=== PATIENT | female | born 1955 | race Caucasian/White ===

== ENCOUNTER 2025-07-25 02:22 | Inpatient (IN) | payer MEDICARE ==
[2025-07-25] MEDS ORDERED: Calcium Chloride 1 GM/10 ML Abboject SYRINGE ONE (02:25)
[2025-07-25] MEDS ORDERED: EPINEPHrine 1 MG/10 ML Abboject SYRINGE ONE (02:25)
[2025-07-25] MEDS ORDERED: Sodium Bicarb 50 MEQ/50 ML Abboject 8.4% SYRINGE ONE (02:25)
[2025-07-25] MEDS ORDERED: Norepinephrine 8 MG/0.9% NS 250 ML ONE (02:31)
[2025-07-25] MEDS ORDERED: Vasopressin In 0.9 % NaCl 100 ML ONE (02:45)
[2025-07-25 02:56] LABS: Actual Bicarbonate (HCO3a) 21.5 mEq/L (22-28); Analyzer IN Cardio ER; Base Excess (BEa) -7.5 mEq/L (-2.0 to +3.0); Calcium, Ionized (arterial) 1.30 mmol/L (1.12-1.30); Hematocrit-ABG 22 % (36.0-47.0); Hemoglobin (Hb) 7.4 g/dL (12.0-16.0); O2 Tension (PaO2), arterial 78.8 mmHg (> 70.0); Potassium - ABG Lab 4.99 mmol/L (3.70-5.30)
[2025-07-25 03:02] LABS: CO2 Tension 67.5 mmHg (35.0-45.0); Puncture Site Left Radial artery; pH, Arterial 7.121 (7.35-7.45)
[2025-07-25 03:21] LABS: Hematocrit 22.8 % (36.0-47.0); Hemoglobin 6.4 g/dL (12.0-16.0); Mean Corpuscular Hemoglobin 32.2 pg (27.0-31.0); Mean Corpuscular Volume 114.6 fL (78.0-98.0); Platelet Count 84 10x3/uL (130-400); Red Blood Cell (RBC) Count 1.99 mill/uL (4.20-5.40); White Blood Cell (WBC) Count 5.99 10x3/uL (4.8-10.8)
[2025-07-25 03:29] LABS: INR-International Normal Ratio 2.5; Prothrombin Time 27.5 sec (12.0-14.7)
[2025-07-25 03:30] LABS: PTT 20.1 sec (22.9-36.1)
[2025-07-25 03:48] LABS: Anisocytosis SLIGHT = 6-15 cells HPF (0-5); Macrocytosis SLIGHT = 6-15 cells HPF (0-5); Nucleated RBC (Manual Ct) 2 % (0); Platelet Adequacy Comment Platelets Decreased; Polychromasia SLIGHT = 2-3 cells HPF (0-2)
[2025-07-25 03:50] LABS: ALT (SGPT) 2428 U/L (Less than 34); AST (SGOT) Greater than 4001 U/L (11-34); Albumin 1.1 g/dL (3.1-4.5); Alkaline Phosphatase 86 U/L (40-110); Anion Gap 24 mmol/L (10-20); BUN (Urea Nitrogen) 24 mg/dL (9.8-20.1); Bilirubin, Total 0.1 mg/dL (0.3-1.2); Calc. Creatinine Clearance 0 mL/min (70-130); Calcium 9.5 mg/dL (7.8-10.44); Carbon Dioxide 24 mmol/L (23-31); Chloride 98 mmol/L (98-107); Globulin 1.7 g/dL (2.4-3.5); Glucose 317 mg/dL (83-110); Potassium 5.7 mmol/L (3.5-5.1); Sodium 140 mmol/L (136-145)
[2025-07-25 04:17] LABS: Acetaminophen Less than 10 mcg/mL (Less than 10); Salicylate Less than 8.0 mg/dL (Less than 8.0)
[2025-07-25] MEDS ORDERED: Ondansetron PF 4 MG/2 ML Vial IVP PRN (05:07)
[2025-07-25] MEDS ORDERED: PHOS-NAK 1 PKT PACK PO PRN (05:15)
[2025-07-25] MEDS ORDERED: Magnesium 2 GM/50 ML(in water) 2 GM in Premix 1 BAG IVPB PRN (05:15)
[2025-07-25] MEDS ORDERED: Potassium Chloride 20 MEQ in Premix 1 BAG IVPB PRN (05:15)
[2025-07-25] MEDS ORDERED: Electrolyte Replacement Protocol 1 EACH FS SCH (05:15)
[2025-07-25] MEDS ORDERED: NOREPINEPHRINE 8 MG/250 ML-D5W 250 ML IVPB SCH (06:00)
[2025-07-25] MEDS ORDERED: Dextrose 50% Abboject 50 ML SYRINGE SLOW IVP PRN (06:29)
[2025-07-25] MEDS ORDERED: Glucagon 1 MG/ML KIT IM PRN (06:29)
[2025-07-25 06:30] VITALS: BMI 21.0
[2025-07-25] MEDS ORDERED: Fentanyl BOLUS 100 ML IVPB PRN (06:30)
[2025-07-25] MEDS ORDERED: DISCONTINUE PREVIOUS NARCOTIC PAIN MEDICATIONS AND BENZODIAZEPINES FS SCH (06:30)
[2025-07-25] MEDS ORDERED: Propofol BOLUS 1,000 MG/100 ML VIAL IV PRN (06:30)
[2025-07-25 06:32] LABS: ALT (SGPT) 3246 U/L (Less than 34); AST (SGOT) Greater than 4001 U/L (11-34); Albumin 1.2 g/dL (3.1-4.5); Alkaline Phosphatase 220 U/L (40-110); Anion Gap 23 mmol/L (10-20); BUN (Urea Nitrogen) 26 mg/dL (9.8-20.1); Bilirubin, Total 0.5 mg/dL (0.3-1.2); Calc. Creatinine Clearance 88 mL/min (70-130); Calcium 6.8 mg/dL (7.8-10.44); Carbon Dioxide 17 mmol/L (23-31); Chloride 107 mmol/L (98-107); Globulin 1.8 g/dL (2.4-3.5); Glucose 193 mg/dL (83-110); Potassium 4.8 mmol/L (3.5-5.1); Sodium 142 mmol/L (136-145)
[2025-07-25 06:53] VITALS: TEMP 92.5
[2025-07-25 07:49] VITALS: BP 65/41
[2025-07-25] MEDS: cefTRIAXone\\ROCEPHIN 1 GM in Sodium Chloride 0.9% 100 ML IVPB SCH (08:08)
[2025-07-25] MEDS: Albumin 25% 25 GM (100 mL) BOT IVPB SCH (08:08)
[2025-07-25] MEDS: Mupirocin 1 GM TUBE NASAL DECOLONIZATION NASAL SCH (08:09)
[2025-07-25] MEDS: Hydrocortisone Sod Succ/PF 100 mg/2 ml Vial IVP SCH (08:09)
[2025-07-25] MEDS: Pantoprazole 40 MG VIAL IVP SCH ×2 (08:13→08:28)
[2025-07-25] MEDS: Norepinephrine 8 MG/0.9% NS 250 ML ONE (08:14)
[2025-07-25] MEDS: Ventilator Sedation Protocol 1 EACH FS ONE (08:15)
[2025-07-25] MEDS: Vasopressin In 0.9 % NaCl 100 ML IV SCH (08:28)
[2025-07-25] MEDS ORDERED: Norepinephrine 8 MG/0.9% NS 250 ML IVPB SCH (08:45)
[2025-07-25] MEDS ORDERED: Albumin 25% 25 GM (100 mL) BOT IVPB SCH (12:00)
[2025-07-25] MEDS ORDERED: Hydrocortisone Sod Succ/PF 100 mg/2 ml Vial IVP SCH (12:00)
== END 2025-07-25 12:05 | disposition expired | DRG 377 ==
LOC: ERS 02:22 → CCU 05:08
PROVIDERS: ADMIT Internal Medicine; ATTEND Family Medicine
PROC: 3E03329 Introduction of Other Anti-infective into Peripheral Vein, Percutaneous Approach (ICD-10-PCS; principal; 2025-07-25)
PROC: 3E033XZ Introduction of Vasopressor into Peripheral Vein, Percutaneous Approach (ICD-10-PCS; 2025-07-25)
PROC: 0T9B70Z Drainage of Bladder with Drainage Device, Via Natural or Artificial Opening (ICD-10-PCS; 2025-07-25)
PROC: 5A12012 Performance of Cardiac Output, Single, Manual (ICD-10-PCS; 2025-07-25)
PROC: 30233J1 Transfusion of Nonautologous Serum Albumin into Peripheral Vein, Percutaneous Approach (ICD-10-PCS; 2025-07-25)
PROC: 30233N1 Transfusion of Nonautologous Red Blood Cells into Peripheral Vein, Percutaneous Approach (ICD-10-PCS; 2025-07-25)
PROC: 4A03351 Measurement of Arterial Flow, Peripheral, Percutaneous Approach (ICD-10-PCS; 2025-07-25)
PROC: 5A1935Z Respiratory Ventilation, Less than 24 Consecutive Hours (ICD-10-PCS; 2025-07-25)
PROC: 0T9B70Z Drainage of Bladder with Drainage Device, Via Natural or Artificial Opening (ICD-10-PCS; 2025-07-25)
PROC: 5A12012 Performance of Cardiac Output, Single, Manual (ICD-10-PCS; 2025-07-25)
DX: K92.2 Gastrointestinal hemorrhage, unspecified (principal); E43 Unspecified severe protein-calorie malnutrition; J96.00 Acute respiratory failure, unspecified whether with hypoxia or hypercapnia; K72.00 Acute and subacute hepatic failure without coma; R57.9 Shock, unspecified; E87.20 Acidosis, unspecified; N39.0 Urinary tract infection, site not specified; I46.9 Cardiac arrest, cause unspecified; Z66 Do not resuscitate; I48.0 Paroxysmal atrial fibrillation; M19.90 Unspecified osteoarthritis, unspecified site; K59.00 Constipation, unspecified; I10 Essential (primary) hypertension; D63.8 Anemia in other chronic diseases classified elsewhere; K52.832 Lymphocytic colitis; E87.5 Hyperkalemia; Z68.21 Body mass index [BMI] 21.0-21.9, adult; Z51.5 Encounter for palliative care; Z90.49 Acquired absence of other specified parts of digestive tract; Z98.41 Cataract extraction status, right eye; Z95.2 Presence of prosthetic heart valve; Z98.890 Other specified postprocedural states
CPT/HCPCS: 36416; 36430; 36556; 36600; 51702; 71045; 80053; 80307; 82805; 83605; 83880; 84484; 85610; 85730; 86850; 86900; 86901; 87040; 87077; 92950; 93005; 94002; 94760; 96365; 96366; 96368; 99292; J0165; J0282; J0696; J1720; J2470; J3490; J7030; P9016; P9047